=== PATIENT | male | born 1970 | race Caucasian/White ===

== ENCOUNTER 2018-06-17 09:32 | Observation (INO) ==
--- NOTE | 2018-06-17 09:41 | Emergency Department Note ---
Overdose - [facility] Narrative Medical decision making narrative: 47-year-old female presents after overdose. He is alert here answering questions appropriately at his baseline. He was initially hypoxic improved with nasal cannula. Chest x-ray is clear. CT head negative. Noted to have a leukocytosis likely secondary to stress response with potential developing aspiration pneumonitis. Patient hypoxic with ambulation. Admitted for suspected early aspiration pneumonia. - Lab Data Lab results reviewed: Yes I reviewed the patient's lab results. Result diagrams: 06/17/18 10:37 06/17/18 10:37 Lab Results 06/17/18 06/17/18 06/17/18 Range/Units 10:31 10:37 10:37 WBC 20.0 H (4.3-11.1) K/mcL RBC 4.43 (4.19-5.50) M/mcL Hgb 14.1 (12.9-16.9) g/dL Hct 42.9 (37.5-50.1) % MCV 96.8 (83.0-100.0) fL MCH 31.8 (28.0-33.3) pg MCHC 32.9 (31.6-35.5) g/dL RDW 13.3 (11.5-14.5) % Plt Count 330 (140-400) K/mcL MPV 9.0 L (9.4-12.4) fL Immature Gran % 0.5 (0-4) % Seg Neutrophils % 83.1 % Lymphocytes % 7.0 % Monocytes % 9.2 % Eosinophils % 0.1 % Basophils % 0.1 % Neutrophils # 16.6 H (1.6-8.9) K/mcL Lymphocytes # 1.4 (0.6-4.6) K/mcL Monocytes # 1.8 H (0.0-1.3) K/mcL Eosinophils # 0.0 (0.0-0.6) K/mcL Basophils # 0.0 (0.0-0.2) K/mcL PT 11.4 (9.4-12.1) Seconds INR 1.0 Sodium (136-145) mEq/L Potassium (3.5-5.1) mEq/L Chloride (98-107) mEq/L Carbon Dioxide (23-29) mEq/L BUN (6-20) mg/dL Creatinine (0.70-1.30) mg/dL Est GFR ( Amer) (> 60) Est GFR (Non-Af Amer) (> 60) BUN/Creatinine Ratio (6-26) Glucose (70-105) mg/dL Calculated Osmolality (280-300) Calcium (8.6-10.3) mg/dL Urine Opiates Screen Positive H (Rscadp=598) ng/mL Ur Barbiturates Screen Negative (Hawmfw=880) ng/mL Ur Phencyclidine Scrn Negative (Cutoff=25) ng/mL Ur Amphetamines Screen Negative (Cwnlhw=1918) ng/mL U Benzodiazepines Scrn Negative (Qjcbqq=267) ng/mL Urine Cocaine Screen Negative (Cutoff= 300) ng/mL U Marijuana (THC) Screen Negative (Cutoff = 50) ng/mL Ur Drug Screen Interp See Below Ethyl Alcohol (Less than 10) mg/dL 06/17/18 Range/Units 10:37 WBC (4.3-11.1) K/mcL RBC (4.19-5.50) M/mcL Hgb (12.9-16.9) g/dL Hct (37.5-50.1) % MCV (83.0-100.0) fL MCH (28.0-33.3) pg MCHC (31.6-35.5) g/dL RDW (11.5-14.5) % Plt Count (140-400) K/mcL MPV (9.4-12.4) fL Immature Gran % (0-4) % Seg Neutrophils % % Lymphocytes % % Monocytes % % Eosinophils % % Basophils % % Neutrophils # (1.6-8.9) K/mcL Lymphocytes # (0.6-4.6) K/mcL Monocytes # (0.0-1.3) K/mcL Eosinophils # (0.0-0.6) K/mcL Basophils # (0.0-0.2) K/mcL PT (9.4-12.1) Seconds INR Sodium 139 (136-145) mEq/L Potassium 5.0 (3.5-5.1) mEq/L Chloride 101 (98-107) mEq/L Carbon Dioxide 31 H (23-29) mEq/L BUN 38 H (6-20) mg/dL Creatinine 1.25 (0.70-1.30) mg/dL Est GFR ( Amer) > 60 (> 60) Est GFR (Non-Af Amer) > 60 (> 60) BUN/Creatinine Ratio 30 H (6-26) Glucose 104 (70-105) mg/dL Calculated Osmolality 297 (280-300) Calcium 9.5 (8.6-10.3) mg/dL Urine Opiates Screen (Iyvoyg=108) ng/mL Ur Barbiturates Screen (Biiisa=986) ng/mL Ur Phencyclidine Scrn (Cutoff=25) ng/mL Ur Amphetamines Screen (Csdrzr=4571) ng/mL U Benzodiazepines Scrn (Cwyybr=223) ng/mL Urine Cocaine Screen (Cutoff= 300) ng/mL U Marijuana (THC) Screen (Cutoff = 50) ng/mL Ur Drug Screen Interp Ethyl Alcohol < 10 (Less than 10) mg/dL - Radiology Data Radiology results reviewed: Yes I reviewed the patient's radiology results. Chest X-Ray 06/17/18 09:37 IMPRESSION: Normal chest. D/ / 06/17/2018 10:59:43 Torsten Clancy MD / kate Interpreting Provider: Torsten Clancy MD Head CT 06/17/18 09:37 IMPRESSION: No acute intracranial abnormality. D/ / Quincy Baez MD / Quincy Baez MD Interpreting Provider: Quincy Baez MD Overdose HPI - General Chief Complaint: ED Overdose Stated Complaint: OD Time Seen by Provider: 06/17/18 09:37 Source: patient, EMS Mode of arrival: EMS Limitations: no limitations Nursing Notes Reviewed: Yes Vital Signs Reviewed: Yes - History of Present Illness HPI Narrative: 47-year-old male presents to the ER status post overdose. Reports around 4 or 5 AM this morning he took his mother who is on hospice care liquid oxycodone. States that his hand has been hurting him and that is why he took the oxycodone. He denies any intent to harm. Denies any drug use previously. He denies any coingestions. He was found by his parents this morning who called EMS. EMS reports he was cyanotic and apneic at the scene requiring bag mask valve. He received 3 doses of Narcan prior to arrival with 4 mg intranasal and 2 mg IV. He is alert and appropriate at the time of arrival. Pt Subjective Complaint: accidental overdose Onset (ago): hour(s) Intent: accidental How Overdose Was Discovered: other (Family found him) Treatments Prior to Arrival: narcan - Related Data Home Medications Medication Instructions Recorded Confirmed Ascorbate Calcium [Vitamin C] 500 mg PO DAILY 12/15/17 12/15/17 Aspirin [Lo-Dose Aspirin EC] 81 mg PO DAILY 12/15/17 12/15/17 Atenolol [Tenormin] 25 mg PO DAILY 12/15/17 12/15/17 Cholecalciferol (D-3) [Vitamin D] 2,000 unit PO DAILY 12/15/17 12/15/17 Lisinopril [Zestril] 20 mg PO DAILY 12/15/17 12/15/17 Multivit-Min/FA/Lycopen/Lutein [A 1 tab PO DAILY 12/15/17 12/15/17 Thru Z Select Multivit Tab] Previous Rx's Medication Instructions Recorded OxyCODONE/APAP 5/325 [Percocet 1 each PO Q6HR PRN 7 Days #20 12/15/17 5/325 MG] tablet Clindamycin [Cleocin] 600 mg PO TID #84 capsule 06/17/18 NALOXONE 4 MG Nasal [place] [Narcan] 4 mg NS AD #2 sprays 06/17/18 Allergies Allergy/AdvReac Type Severity Reaction Status Date / Time Amoxicillin Allergy Itching Verified 04/26/18 05:04 codeine Allergy Itching Verified 04/26/18 05:04 All systems ED: reviewed and negative except as stated. Cardiovascular: Denies: chest pain Respiratory: Denies: dyspnea Gastrointestinal: Denies: abdominal pain, nausea, vomiting Neurological: Denies: headache Past Medical History - Past Medical History Attestation: Yes The following information was validated with the patient. 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) Psychiatric history: Reports: anxiety, depression - Social History Smoking Status: Current every day smoker Smokeless Tobacco Status: No Alcohol use: Reports: occasionally Drug use: Reports: none Physical Exam - General Limitations: no limitations General appearance: alert, in no apparent distress - Head Head exam: atraumatic, normocephalic, normal inspection - Eye Eye exam: Present: normal appearance - ENT ENT exam: normal exam - Neck Neck exam: Present: normal inspection - Chest Chest inspection: Present: normal inspection, symmetric chest wall rise - Respiratory Respiratory exam: Present: normal lung sounds bilaterally - Cardiovascular Cardiovascular exam: Present: regular rate, normal rhythm, normal heart sounds - Abdominal Exam Abdominal exam: Present: soft, Non-Tender. Absent: tenderness, distention, rigidity - Extremities Exam Extremities exam: Present: normal inspection, full ROM - Expanded Upper Extremity Exam Shoulder exam: Present: normal inspection, full ROM Arm exam: Present: normal inspection, full ROM Elbow exam: Present: normal inspection, full ROM Forearm/Wrist exam: Present: normal inspection, full ROM Hand exam: Present: normal inspection, full ROM - Expanded Lower Extremity Exam Hip/Pelvis exam: Present: normal inspection, full ROM Upper leg exam: Present: normal inspection, full ROM Knee exam: Present: normal inspection, full ROM Lower leg exam: Present: normal inspection, full ROM Ankle exam: Present: normal inspection, full ROM Foot/toe exam: Present: normal inspection, full ROM Neurovascular/Tendon exam: Absent: motor deficit, sensory deficit - Neurological Exam Neurological exam: Present: alert, other (GCS 15. Answers questions appropriately. No focal deficits.) - Skin Skin exam: Present: warm, dry Course Course Narrative: Patient seen and examined. Vital signs reviewed. Plan for CT imaging of the head, chest x-ray, cardiac monitoring and pulse oximetry. - Reevaluation(s) Reevaluation #1: Patient resting comfortably. 90% on nasal cannula. Turned oxygen off to evaluate. Discussed findings with the patient as well as others present in the room. He would rather go home if possible. He does have a leukocytosis of 20 suggestive of acute stress response with likely developing aspiration pneumonitis. Patient agreeable with plan. Given a dose of clindamycin here. Reevaluation #2: The patient ambulated here and was hypoxic down to 88%. Plan for admission. Vital Signs Temperature 97.6 F 06/17/18 09:34 Pulse Rate 116 06/17/18 09:34 Respiratory Rate 17 06/17/18 09:34 Blood Pressure 130/90 06/17/18 09:34 O2 Sat by Pulse Oximetry 92 06/17/18 09:34 Temperature 97.6 F 06/17/18 09:34 Pulse Rate 95 06/17/18 11:09 Respiratory Rate 18 06/17/18 11:09 Blood Pressure 104/76 06/17/18 11:09 O2 Sat by Pulse Oximetry 95 06/17/18 11:09 Oxygen Delivery Oxygen Delivery Room Air Disposition Clinical Impression: Hypoxia Drug overdose Qualifiers: Encounter type: initial encounter Injury intent: accidental or unintentional Qualified Code(s): T50.901A - Poisoning by unspecified drugs, medicaments and biological substances, accidental (unintentional), initial encounter Disposition: Admitted As Inpatient Condition: Good Reasons to Return/Additional Instructions: Please take the clindamycin as prescribed. Please follow-up with your primary care provider in the next 1-2 days for reevaluation. Please return at any time if you have worsening of symptoms or any concerns. Prescriptions: Clindamycin [Cleocin] 600 mg PO TID #84 capsule NALOXONE 4 MG Nasal [place] [Narcan] 4 mg NS AD #2 sprays Referrals: Cheo Menezes MD [Primary Care Provider] - Forms: ED Satisfaction Letter Time of Disposition: 11:50 S.B.Oliver - BrantB.ARonda Situation: Demographics, MOA Background: Presenting Complaint, Relevant PMH, Meds, & Allergies Assessment: Vital Signs, Course and respsone to treatment, Exam Concerns, Patient/Family Expectation, Pertinant Lab Results Recommendation: Barrier(s) to disposition, Recommendation based on pending studies, treatments, or consults S.B.A.RMynor Report Given to: Dr. Oliver GuoB.ARonda Repor Time: 12:41 Attestation Statement - Attestation Attestation: I, El Steinberg DO, examined this patient [id number] and my medical decision-making was reviewed with Dr. Edmundo Toribio, Resident Physician. I agree with the documented findings, disposition and treatment plan as described except to the extent set forth below. Please see my progress notes for details.
--- NOTE | 2018-06-17 09:53 | Emergency Department Note ---
Disposition Clinical Impression: Drug overdose Qualifiers: Encounter type: initial encounter Injury intent: accidental or unintentional Qualified Code(s): T50.901A - Poisoning by unspecified drugs, medicaments and biological substances, accidental (unintentional), initial encounter Disposition: Home, Self-Care Condition: Good Instructions: Adult Overdose (ED) Reasons to Return/Additional Instructions: Please take the clindamycin as prescribed. Please follow-up with your primary care provider in the next 1-2 days for reevaluation. Please return at any time if you have worsening of symptoms or any concerns. Prescriptions: Clindamycin [Cleocin] 600 mg PO TID #84 capsule NALOXONE 4 MG Nasal [place] [Narcan] 4 mg NS AD #2 sprays Referrals: Cheo Menezes MD [Non-Partnered Physician] - Forms: ED Satisfaction Letter Time of Disposition: 12:33 General Adult HPI - General Chief complaint: ED Overdose Stated complaint: OD Time Seen by Provider: 06/17/18 09:37 Source: patient, EMS Mode of arrival: EMS Limitations: no limitations - History of Present Illness Pain Scale: 0 - Related Data Home Medications Medication Instructions Recorded Confirmed Ascorbate Calcium [Vitamin C] 500 mg PO DAILY 12/15/17 12/15/17 Aspirin [Lo-Dose Aspirin EC] 81 mg PO DAILY 12/15/17 12/15/17 Atenolol [Tenormin] 25 mg PO DAILY 12/15/17 12/15/17 Cholecalciferol (D-3) [Vitamin D] 2,000 unit PO DAILY 12/15/17 12/15/17 Lisinopril [Zestril] 20 mg PO DAILY 12/15/17 12/15/17 Multivit-Min/FA/Lycopen/Lutein [A 1 tab PO DAILY 12/15/17 12/15/17 Thru Z Select Multivit Tab] Previous Rx's Medication Instructions Recorded OxyCODONE/APAP 5/325 [Percocet 1 each PO Q6HR PRN 7 Days #20 12/15/17 5/325 MG] tablet Clindamycin [Cleocin] 600 mg PO TID #84 capsule 06/17/18 NALOXONE 4 MG Nasal [place] [Narcan] 4 mg NS AD #2 sprays 06/17/18 Allergies Allergy/AdvReac Type Severity Reaction Status Date / Time Amoxicillin Allergy Itching Verified 04/26/18 05:04 codeine Allergy Itching Verified 04/26/18 05:04 Cardiovascular: Denies: chest pain Respiratory: Denies: dyspnea Gastrointestinal: Denies: abdominal pain, nausea, vomiting Neurological: Denies: headache Past Medical History - Past Medical History Medical history: Reports: hypertension 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) Psychiatric history: Reports: anxiety, depression - Social History Smoking Status: Current every day smoker Smokeless Tobacco Status: No Alcohol use: Reports: occasionally Drug use: Reports: none Physical Exam - General Limitations: no limitations General appearance: alert, in no apparent distress Course Vital Signs Temperature 97.6 F 06/17/18 09:34 Pulse Rate 116 06/17/18 09:34 Respiratory Rate 17 06/17/18 09:34 Blood Pressure 130/90 06/17/18 09:34 O2 Sat by Pulse Oximetry 92 06/17/18 09:34 Temperature 97.6 F 06/17/18 09:34 Pulse Rate 95 06/17/18 11:09 Respiratory Rate 18 06/17/18 11:09 Blood Pressure 104/76 06/17/18 11:09 O2 Sat by Pulse Oximetry 95 06/17/18 11:09 Oxygen Delivery Oxygen Delivery Room Air Medical Decision Making - Lab Data Result diagrams: 06/17/18 10:37 06/17/18 10:37 Lab Results 06/17/18 06/17/18 06/17/18 Range/Units 10:31 10:37 10:37 WBC 20.0 H (4.3-11.1) K/mcL RBC 4.43 (4.19-5.50) M/mcL Hgb 14.1 (12.9-16.9) g/dL Hct 42.9 (37.5-50.1) % MCV 96.8 (83.0-100.0) fL MCH 31.8 (28.0-33.3) pg MCHC 32.9 (31.6-35.5) g/dL RDW 13.3 (11.5-14.5) % Plt Count 330 (140-400) K/mcL MPV 9.0 L (9.4-12.4) fL Immature Gran % 0.5 (0-4) % Seg Neutrophils % 83.1 % Lymphocytes % 7.0 % Monocytes % 9.2 % Eosinophils % 0.1 % Basophils % 0.1 % Neutrophils # 16.6 H (1.6-8.9) K/mcL Lymphocytes # 1.4 (0.6-4.6) K/mcL Monocytes # 1.8 H (0.0-1.3) K/mcL Eosinophils # 0.0 (0.0-0.6) K/mcL Basophils # 0.0 (0.0-0.2) K/mcL PT 11.4 (9.4-12.1) Seconds INR 1.0 Sodium (136-145) mEq/L Potassium (3.5-5.1) mEq/L Chloride (98-107) mEq/L Carbon Dioxide (23-29) mEq/L BUN (6-20) mg/dL Creatinine (0.70-1.30) mg/dL Est GFR ( Amer) (> 60) Est GFR (Non-Af Amer) (> 60) BUN/Creatinine Ratio (6-26) Glucose (70-105) mg/dL Calculated Osmolality (280-300) Calcium (8.6-10.3) mg/dL Urine Opiates Screen Positive H (Mhaydc=206) ng/mL Ur Barbiturates Screen Negative (Fhklcc=985) ng/mL Ur Phencyclidine Scrn Negative (Cutoff=25) ng/mL Ur Amphetamines Screen Negative (Fcfmbg=3397) ng/mL U Benzodiazepines Scrn Negative (Rvvmao=402) ng/mL Urine Cocaine Screen Negative (Cutoff= 300) ng/mL U Marijuana (THC) Screen Negative (Cutoff = 50) ng/mL Ur Drug Screen Interp See Below Ethyl Alcohol (Less than 10) mg/dL 06/17/18 Range/Units 10:37 WBC (4.3-11.1) K/mcL RBC (4.19-5.50) M/mcL Hgb (12.9-16.9) g/dL Hct (37.5-50.1) % MCV (83.0-100.0) fL MCH (28.0-33.3) pg MCHC (31.6-35.5) g/dL RDW (11.5-14.5) % Plt Count (140-400) K/mcL MPV (9.4-12.4) fL Immature Gran % (0-4) % Seg Neutrophils % % Lymphocytes % % Monocytes % % Eosinophils % % Basophils % % Neutrophils # (1.6-8.9) K/mcL Lymphocytes # (0.6-4.6) K/mcL Monocytes # (0.0-1.3) K/mcL Eosinophils # (0.0-0.6) K/mcL Basophils # (0.0-0.2) K/mcL PT (9.4-12.1) Seconds INR Sodium 139 (136-145) mEq/L Potassium 5.0 (3.5-5.1) mEq/L Chloride 101 (98-107) mEq/L Carbon Dioxide 31 H (23-29) mEq/L BUN 38 H (6-20) mg/dL Creatinine 1.25 (0.70-1.30) mg/dL Est GFR ( Amer) > 60 (> 60) Est GFR (Non-Af Amer) > 60 (> 60) BUN/Creatinine Ratio 30 H (6-26) Glucose 104 (70-105) mg/dL Calculated Osmolality 297 (280-300) Calcium 9.5 (8.6-10.3) mg/dL Urine Opiates Screen (Aeyght=897) ng/mL Ur Barbiturates Screen (Tvyckk=499) ng/mL Ur Phencyclidine Scrn (Cutoff=25) ng/mL Ur Amphetamines Screen (Ehtknt=6879) ng/mL U Benzodiazepines Scrn (Lyuxca=937) ng/mL Urine Cocaine Screen (Cutoff= 300) ng/mL U Marijuana (THC) Screen (Cutoff = 50) ng/mL Ur Drug Screen Interp Ethyl Alcohol < 10 (Less than 10) mg/dL Attestation Statement - Attestation Attestation: I, El Steinberg DO, examined this patient [id number] and my medical decision-making was reviewed with Dr. Edmundo Toribio, Resident Physician. I agree with the documented findings, disposition and treatment plan as described except to the extent set forth below. Please see my progress notes for details. 47-year-old male presents emergency room by EMS for evaluation of accidental overdose. Patient took his mother's oxycodone elixir home secondary to pain in his hands according to him. He is currently denying any history of substance abuse. EMS did say they saw fresh track hart and the family disclosed a history of substance abuse. Patient required 6 mg of Narcan to by internasal distribution in for by IV distribution during transit. He was found to have a pulse ox of 40% on arrival. EMS provided [id number] ventilation and oxygenation that time he has not had any issues saturations during the transport on arrival here to our emergency room his vital signs appear to be stable. Patient is alert he is oriented he answers questions appropriately. He said that the medications are Protonix 4 or 5 AM this morning. His lungs are rhonchorous on evaluation his heart is regular abdomen is soft. He has no specific signs of trauma or injuries to the extremities or his head. Imaging modality of his head as well as chest x-ray will be completed. Patient otherwise asymptomatic. Timeframe will be reevaluated considering this potentially could be a long-acting medication but he has been provided a significant amount of Narcan. Disposition will be most likely home once the workup and treatment course have been established. See detailed documentation of the physical exam, medical intervention, medical decision-making and disposition the resident physician's note [id number] Patient is requesting to be discharged home. He will be ambulated on emergency room to make sure that he does not desaturate. If he does will discuss disposition. Patient is otherwise clinically stable at this time but we will continue to monitor until treatment course has been completed. X-ray and labs appear to be stable no acute signs of infectious etiology at this time 1215 Patient will be admitted after having hypoxia while ambulating. Patient will be admitted for symptomatic pulmonary injury secondary to most likely aspiration overdose. Hospitalist Dr. Boyd will be contacted admission process will be established. Any recommendations or concerns will be noted in the chart patient will be admitted for definitive management
[2018-06-17] MEDS ORDERED: 0.9 % Sodium Chloride 1,000 ML IVC ONE (10:11)
[2018-06-17 10:45] LABS: Basophils % 0.1 %; Eosinophils % 0.1 %; Hematocrit 42.9 % (37.5-50.1); Hemoglobin 14.1 g/dL (12.9-16.9); Immature Granulocytes % 0.5 % (0-4); Lymphocytes # 1.4 K/mcL (0.6-4.6); Mean Corpuscular HGB Conc 32.9 g/dL (31.6-35.5); Mean Corpuscular Hemoglobin 31.8 pg (28.0-33.3); Mean Corpuscular Volume 96.8 fL (83.0-100.0); Monocytes # 1.8 K/mcL (0.0-1.3); Monocytes % 9.2 %; Neutrophils # 16.6 K/mcL (1.6-8.9); Platelet Count 330 K/mcL (140-400); Red Blood Count 4.43 M/mcL (4.19-5.50); Red Cell Distribution Width 13.3 % (11.5-14.5); Segmented Neutrophils % 83.1 %
[2018-06-17] MEDS ORDERED: Clindamycin 600 MG/50 ML 600 MG/50 ML IV.SOLN IVPB ONE (10:49)
[2018-06-17 10:56] LABS: Amphetamine Screen,Urine Negative ng/mL (Cutoff=1000); Barbiturate Screen,Urine Negative ng/mL (Cutoff=200); Benzodiazepines Screen,Urine Negative ng/mL (Cutoff=200); Cannabinoid Screen,Urine Negative ng/mL (Cutoff = 50); Cocaine Screen,Urine Negative ng/mL (Cutoff= 300); Opiate Screen,Urine Positive ng/mL (Cutoff=300); Phencyclidine Screen,Urine Negative ng/mL (Cutoff=25)
[2018-06-17 10:57] LABS: Prothrombin Time 11.4 Seconds (9.4-12.1)
[2018-06-17 11:10] LABS: BUN/Creatinine Ratio 30 (6-26); Blood Urea Nitrogen 38 mg/dL (6-20); Calcium 9.5 mg/dL (8.6-10.3); Carbon Dioxide 31 mEq/L (23-29); Chloride 101 mEq/L (98-107); Ethanol < 10 mg/dL (Less than 10); Glucose 104 mg/dL (70-105); Osmolality,Calculated 297 (280-300); Sodium 139 mEq/L (136-145); eGFR For Non-African Americans > 60 (> 60)
[2018-06-17] MEDS ORDERED: Naloxone 0.4 MG/ML INJ IVP PRN (12:57)
[2018-06-17] MEDS ORDERED: Ibuprofen 400 MG TABLET PO PRN (12:57)
[2018-06-17] MEDS ORDERED: Acetaminophen 325 MG TABLET PO PRN (12:57)
[2018-06-17] MEDS ORDERED: Ipratropium/Albuterol Neb 3 ML IH PRN (13:01)
--- NOTE | 2018-06-17 14:09 | Internal Med History&Physical ---
Date of Encounter: 06/17/18 Time of Encounter: 12:00 Internal Medicine - H&P: HPI Chief complaint: Hypoxia Admitted From: Home Plans for Post Hospital Care: Home History of present illness: Mr. Lyons is a 47 year old male presented to ER for nonresponsive. Past medical history is significant for hep C, hypertension. Patient took his mother's liquid form of oxycodone yesterday around 2 PM, because of chronic hand pain. This morning, around 8 AM, patient was found nonresponsive at home. Patient just laid on bed, cannot be wake-up. No fall. Patient was considered opioid overdose and was given Narcan in the emergency room. After treatment, patient wake-up, awake alert. Patient denies suicidal idea. However, patient has low oxygen saturation at 88% on room air. Patient denies cough, shortness of breath, fever. Patient was found leukocytosis. Patient was suspect early aspiration although chest x-ray negative. Patient was treated with oxygen and clindamycin IV. Patient was admitted for further monitoring. Past Med Surg Social Fam HX - Past Medical History Medical history: hypertension Psychiatric history: anxiety, depression - Past Surgical History Surgical History: other (Left second digit amputation) Additional surgical history: hand surgeries - Social History Smoking Status: Current every day smoker Smokeless Tobacco Status: No Alcohol use: occasionally Drug use: none - Family History Mother History Unknown: Yes Internal Medicine - H&P: Meds Aspirin [Lo-Dose Aspirin EC] 81 mg PO DAILY 12/15/17 [History] Cholecalciferol (D-3) [Vitamin D] 2,000 unit PO DAILY 12/15/17 [History] Multivit-Min/FA/Lycopen/Lutein [A Thru Z Select Multivit Tab] 1 tab PO DAILY [History] Clindamycin [Cleocin] 600 mg PO TID #84 capsule 06/17/18 [Rx] Lisinopril [Lisinopril] 30 mg PO DAILY 06/17/18 [History] NALOXONE 4 MG Nasal [place] [Narcan] 4 mg NS AD #2 sprays 06/17/18 [Rx] 3 Allergy/AdvReac Type Severity Reaction Status Date / Time Amoxicillin Allergy Itching Verified 06/17/18 13:50 codeine Allergy Itching Verified 06/17/18 13:50 All Systems PM: A 10-system review of systems was performed and is negative for pertinent findings except as documented above in the HPI. - Constitutional Vitals: Temp Pulse Resp BP Pulse Ox 98.1 F 88 16 108/74 91 06/17/18 13:47 06/17/18 13:47 06/17/18 13:47 06/17/18 13:47 06/17/18 13:47 General appearance: Present: A&O X 3, no acute distress, answers questions appropriately - Head Head exam: Present: atraumatic, normocephalic - Eye Eye exam: Present: PERRL, conjuntiva pink, sclera anicteric Pupils: Present: PERRL - Neck Neck exam general surgery: Present: supple, trachea midline. Absent: lymphadenopathy - Respiratory Respiratory exam: Present: CTAB. Absent: accessory muscle use, rales, rhonchi, wheezes - Cardiovascular Cardiovascular exam: Present: RRR, +S1, +S2. Absent: diastolic murmur, gallop, rubs, systolic murmur - GI/Abdominal GI/Abdominal exam: Present: normal bowel sounds, soft, no peritoneal signs. Absent: distended, tenderness - Extremities Exam Extremities exam: Present: warm, radial pulses palpable and symmetrical. Absent : calf tenderness, cyanotic, pedal edema - Neurological Exam Neurological exam: Present: CN II-XII intact, oriented X3, no focal deficits. Absent: pronater drift, facial droop, speech deficit - Skin Skin exam: Present: dry, intact Internal Med - H&P Results - Labs CBC & Chem 7: 06/17/18 10:37 06/17/18 10:37 - Assessment and plan (1) Hypertension Current Visit: Yes Status: Acute Assessment and plan: Continue home medication lisinopril Qualifiers: Hypertension type: essential hypertension Qualified Code(s): I10 - Essential (primary) hypertension (2) Drug overdose Current Visit: Yes Status: Acute Assessment and plan: Reversed by Narcan. Continue closely monitor patient. Narcan as needed Qualifiers: Encounter type: initial encounter Injury intent: accidental or unintentional Qualified Code(s): T50.901A - Poisoning by unspecified drugs, medicaments and biological substances, accidental (unintentional), initial encounter (3) Hypoxia Current Visit: Yes Status: Acute Assessment and plan: Etiology is undetermined. Patient has leukocytosis. Has totally nonresponsive earlier today. Suspect aspiration. - Closely monitor patient with a continuous pulse oximetry - Oxygen supplement - Empirically started clindamycin by ER, will continue, may consider discontinue if aspiration is ruled out (4) Leukocytosis Current Visit: Yes Status: Acute Assessment and plan: Consider reactive versus aspiration pneumonia. Clindamycin IV started. Closely follow-up CBC. Qualifiers: Leukocytosis type: leukemoid reaction Qualified Code(s): D72.823 - Leukemoid reaction - Time Spent With Patient Total time spent is greater than 50% in coordination of care (as documented) at patient's floor/unit and/or counseling patient: 30 minutes 25 - 35 minutes
[2018-06-17] MEDS: Nicotine 21 MG PATCH.TD24 TD SCH (17:20)
[2018-06-17] MEDS: Clindamycin 600 MG/50 ML 600 MG/50 ML IV.SOLN IVPB SCH (17:20)
[2018-06-18] MEDS: Clindamycin 600 MG/50 ML 600 MG/50 ML IV.SOLN IVPB SCH ×2 (00:32→09:01)
[2018-06-18 04:00] LABS: Basophils % 0.4 %; Hematocrit 39.9 % (37.5-50.1); Hemoglobin 13.2 g/dL (12.9-16.9); Immature Granulocytes % 0.3 % (0-4); Lymphocytes % 26.4 %; Mean Corpuscular HGB Conc 33.1 g/dL (31.6-35.5); Mean Corpuscular Hemoglobin 31.4 pg (28.0-33.3); Mean Corpuscular Volume 94.8 fL (83.0-100.0); Mean Platelet Volume 8.9 fL (9.4-12.4); Monocytes % 8.1 %; Platelet Count 328 K/mcL (140-400); Red Blood Count 4.21 M/mcL (4.19-5.50); Red Cell Distribution Width 13.4 % (11.5-14.5); Segmented Neutrophils % 59.8 %
[2018-06-18 04:01] LABS: Basophils # 0.1 K/mcL (0.0-0.2); Eosinophils # 0.6 K/mcL (0.0-0.6); Monocytes # 0.9 K/mcL (0.0-1.3); Neutrophils # 6.8 K/mcL (1.6-8.9)
[2018-06-18 04:19] LABS: BUN/Creatinine Ratio 22 (6-26); Blood Urea Nitrogen 21 mg/dL (6-20); Calcium 8.9 mg/dL (8.6-10.3); Carbon Dioxide 31 mEq/L (23-29); Chloride 102 mEq/L (98-107); Glucose 97 mg/dL (70-105); Osmolality,Calculated 287 (280-300); Potassium 4.1 mEq/L (3.5-5.1); Sodium 137 mEq/L (136-145); eGFR For Non-African Americans > 60 (> 60)
[2018-06-18] MEDS ORDERED: Aspirin Enteric Coated 81 MG Tablet PO SCH (09:00)
[2018-06-18] MEDS ORDERED: Lisinopril 20 MG TABLET PO SCH (09:00)
[2018-06-18] MEDS: Nicotine 21 MG PATCH.TD24 TD SCH (09:01)
--- NOTE | 2018-06-18 14:45 | Discharge Summary ---
- NOTES TO OUTPATIENT PROVIDER Notes to Outpatient Provider: Patient was an accidental overdose -was monitored overnight intially had elevated WBC - trended down- oxygen sats stable no fever Date of Encounter: 06/18/18 Time of Encounter: 13:19 - Discharge Diagnosis (1) Drug overdose Priority: Primary Status: Acute Qualifiers: Encounter type: initial encounter Injury intent: accidental or unintentional Qualified Code(s): T50.901A - Poisoning by unspecified drugs, medicaments and biological substances, accidental (unintentional), initial encounter (2) Hypoxia Priority: Secondary Status: Acute (3) Hypertension Priority: Secondary Status: Acute Qualifiers: Hypertension type: essential hypertension Qualified Code(s): I10 - Essential (primary) hypertension (4) Leukocytosis Priority: Secondary Status: Acute Qualifiers: Leukocytosis type: leukemoid reaction Qualified Code(s): D72.823 - Leukemoid reaction Hospital course: Mr. Lyons is a 47 year old male PMH of HTN anxiety depression - Patient has hx of chronic hand pain took his mother's liquid oxycodone He then laid down on the bed and could not be awaken. Patient did not fall. He was brought to the ED and was given Narcan - he did wake up He denies any suicidal ideation - He did have low O2 sats 88% on RA He was noted to have elevated WBC suspect for possible early aspiration. He was given Clindamycin IV Xray negative. He was observed overnight. Sats stable through night 94-97% on RA No fever no cough Lungs CTA- White count down this am - suspect previous was reactive - Patient again denies any suicidal ideation- admits that he was trying to control pain Advised patient to follow up with PCP verbalized understanding . He is hemodynamically stable and ready for discharge Discharge discussed with: patient - Time Spent with Patient Total time spent providing and/or coordinating discharge services: - Discharge Medications Home Medications: Aspirin [Lo-Dose Aspirin EC] 81 mg PO DAILY 12/15/17 [History] Cholecalciferol (D-3) [Vitamin D] 2,000 unit PO DAILY 12/15/17 [History] Multivit-Min/FA/Lycopen/Lutein [A Thru Z Select Multivit Tab] 1 tab PO DAILY [History] Clindamycin [Cleocin] 600 mg PO TID #84 capsule 06/17/18 [Rx] Lisinopril [Lisinopril] 30 mg PO DAILY 06/17/18 [History] NALOXONE 4 MG Nasal [place] [Narcan] 4 mg NS AD #2 sprays 06/17/18 [Rx] Allergies/Adverse Reactions: 3 Allergy/AdvReac Type Severity Reaction Status Date / Time Amoxicillin Allergy Itching Verified 06/17/18 13:50 codeine Allergy Itching Verified 06/17/18 13:50 Date of admission: 06/17/18 13:00 Primary care physician: Cheo Menezes MD Consults: 06/17/18 14:08 Consult to Manager Wellness [CONS] Routine Reason for SW Consult: cares for stepmother Discharging clinician: Christina Beltran Anticipated date of discharge: 06/18/18 - Constitutional Vitals: Temp Pulse Resp BP Pulse Ox 98.6 F 83 16 133/86 97 06/18/18 10:41 06/18/18 10:41 06/18/18 10:41 06/18/18 10:41 06/18/18 10:41 General appearance: Present: A&O X 3, no acute distress, answers questions appropriately Exam: see above - Head Head exam: Present: atraumatic, normocephalic - Eye Eye exam: Present: PERRL, conjuntiva pink, sclera anicteric Pupils: Present: PERRL - Neck Neck exam general surgery: Present: supple, trachea midline. Absent: lymphadenopathy - Respiratory Respiratory exam: Present: CTAB. Absent: accessory muscle use, rales, rhonchi, wheezes - Cardiovascular Cardiovascular exam: Present: RRR, +S1, +S2. Absent: diastolic murmur, gallop, rubs, systolic murmur - GI/Abdominal GI/Abdominal exam: Present: normal bowel sounds, soft, no peritoneal signs. Absent: distended, tenderness - Extremities Exam Extremities exam: Present: warm, radial pulses palpable and symmetrical. Absent : calf tenderness, cyanotic, pedal edema - Neurological Exam Neurological exam: Present: CN II-XII intact, oriented X3, no focal deficits. Absent: pronater drift, facial droop, speech deficit - Skin Skin exam: Present: dry, intact - Patient Status Disposition: Home, Self-Care Condition: Good Functional capacity at discharge: independent ambulation Overall status at discharge: patient is back to baseline - Discharge Instructions Follow Up With: Cheo Menezes MD [Primary Care Provider] - - Diet and Activity Activity: increase activity as tolerated Diet: advance to your usual diet - VTE Documentation of Mechanical Device: Intermittent pneumatic compression device
[2018-06-18 14:48] VITALS: BP 143/83
== END 2018-06-18 16:49 | disposition home or self-care (01) ==
LOC: 3ANU 09:32 → EMEROOARM 09:32 → 3ANU 13:38
PROVIDERS: ADMIT Internal Medicine; ATTEND Internal Medicine